=== PATIENT | female | born 1975 | race Two or more races ===

== ENCOUNTER 2017-10-15 15:53 | Emergency (ER) | payer BC ==
[2017-10-15 16:36] LABS: ADD MAN DIFF? NO
[2017-10-15 16:36] LABS: URINE HCG POC HCG NEGATIVE (Negative)
[2017-10-15 16:37] LABS: BASO # 0.1 x10^3/uL (0.0-0.2); BASO % 1 % (0-3); EOS # 0.3 x10^3/uL (0.0-0.7); EOS % 4 % (0-3); HEMATOCRIT 42.1 % (36.0-47.0); LYMPH % 24 % (24-48); MEAN CORPUSCULAR HEMOGLOBIN 29 pg (25-35); MEAN CORPUSCULAR HGB CONC 33 g/dL (31-37); MEAN CORPUSCULAR VOLUME 88 fL (79-100); MONO # 0.5 x10^3/uL (0.0-1.1); MONO % 6 % (0-9); NEUT # 5.4 x10^3uL (1.8-7.7); NEUT % 65 % (31-73); PLATELET COUNT 323 x10^3/uL (140-400); RED CELL DISTRIBUTION WIDTH 14.2 % (11.5-14.5); WHITE BLOOD COUNT 8.2 x10^3/uL (4.0-11.0)
[2017-10-15 16:41] LABS: BILIRUBIN,URINE NEGATIVE (NEG); CLARITY,URINE CLEAR; COLOR,URINE YELLOW; GLUCOSE,URINE NEGATIVE (NEG); NITRITE,URINE NEGATIVE (NEG); PH,URINE 6.5; PROTEIN,URINE NEGATIVE (NEG-TRACE)
[2017-10-15 16:52] LABS: D-DIMER < 0.27 ug/mlFEU (0.00-0.50)
[2017-10-15 16:53] LABS: ANION GAP 11 (6-14); BLOOD UREA NITROGEN 13 mg/dL (7-20); BUN/CREATININE RATIO 19 (6-20); CALCIUM 9.1 mg/dL (8.5-10.1); CARBON DIOXIDE 25 mmol/L (21-32); CHLORIDE 107 mmol/L (98-107); CREATININE 0.7 mg/dL (0.6-1.0); GFR 90.9; GLUCOSE 93 mg/dL (70-99); SODIUM 143 mmol/L (136-145)
[2017-10-15 16:54] LABS: BACTERIA,URINE MANY /HPF (0-FEW); RBC,URINE 0 /HPF (0-2); SQUAMOUS EPITHELIAL CELL,UR MANY /LPF
[2017-10-15 16:59] LABS: ALBUMIN 3.6 g/dL (3.4-5.0); ALBUMIN/GLOBULIN RATIO 0.9 (1.0-1.7); ALK PHOS 105 U/L (46-116); ALT (SGPT) 21 U/L (14-59); AST (SGOT) 20 U/L (15-37); TOTAL BILIRUBIN 0.5 mg/dL (0.2-1.0); TOTAL PROTEIN 7.5 g/dL (6.4-8.2)
[2017-10-15 17:02] LABS: TROPONINI < 0.017 ng/mL (0.000-0.055)
[2017-10-15 17:08] LABS: CREATINE KINASE 83 U/L (26-192)
[2017-10-15 17:09] LABS: CKMB MASS < 0.5 ng/mL (0.0-3.6)
[2017-10-15] MEDS ORDERED: KETOROLAC 30 MG/ML INJ. IV (17:30)
[2017-10-15] MEDS: HYDROcodone/APAP 5/325MG 1 TAB TABLET PO (17:45)
[2017-10-15] MEDS: IOHEXOL 300 MG/ML 100ML VIAL. IV (17:53)
[2017-10-15] MEDS ORDERED: CONTRAST GIVEN MC (18:00)
== END 2017-10-15 20:52 | disposition home or self-care (01) ==
LOC: ER 15:53
DX: R07.89 Other chest pain (principal); M54.9 Dorsalgia, unspecified; E03.9 Hypothyroidism, unspecified; Z90.49 Acquired absence of other specified parts of digestive tract
CPT/HCPCS: 36415; 71045; 71275; 80053; 81001; 81025; 82553; 84484; 85025; 85379; 93005; 99285-25; Q9967

== ENCOUNTER → 2018-02-23 | Outpatient (CLI) | payer BC | END | disposition home or self-care (01) | LOC: KCIC US 07:53 | DX: K76.0 Fatty (change of) liver, not elsewhere classified (principal); E55.9 Vitamin D deficiency, unspecified; E03.9 Hypothyroidism, unspecified; G43.909 Migraine, unspecified, not intractable, without status migrainosus; Z90.49 Acquired absence of other specified parts of digestive tract; Z68.43 Body mass index [BMI] 50.0-59.9, adult; Z82.49 Family history of ischemic heart disease and other diseases of the circulatory system; Z83.3 Family history of diabetes mellitus | CPT/HCPCS: 76700 ==

== ENCOUNTER → 2018-03-17 | Day surgery (SDC) | payer BC ==
[~2018-03-17] MED LIST: ATOR20TA58 PO; BUPR150T6 PO; HYDR-2678 PO; IV RINGERS,LACTATED 1000ML 1,000 ML IV SCH; LEVO25TA4 PO; LIDOCAINE 1% PF 2 ML VIAL. ID PRN; LIDOCAINE 2% PF Vial for OR 5 ML VIAL. ONE; MIDAZOLAM HCL/PF 2 MG/2 ML VIAL. IV PRN; NAPR500T8 PO; PROPOFOL 20 ML IV ONE; TOPI50TA8 PO; fentaNYL PF VIAL 100 MCG/2 ML VIAL IV PRN
[2018-03-17 09:46] VITALS: BP 155/68
--- NOTE | 2018-03-20 18:06 | PATHOLOGY ---
[facility] Accession Number: [id number] . 01 Material submitted: . GASTRIC POUCH BIOPSY . 01 Clinical history: . Epigastric pain . 02 Diagnosis: Segments of gastric and small intestinal mucosa, gastric pouch biopsies: - Focal erosion and mild to moderate acute and chronic inflammation of small intestinal mucosa. [facility]/03/20/2018 . 02 Comment: Sections of the gastric pouch biopsies reveal three segments of small intestinal mucosa and a single segment of gastric mucosa. Two of these segments of small intestinal mucosa show focal mucosal erosion with mild to moderate acute and chronic inflammation. The segment of gastric mucosa shows congestion and no significant inflammation. A properly controlled immunoperoxidase stain for Helicobacter is negative for Helicobacter organisms. There is no evidence of malignancy. (JPM:[facility] 03/20/2018) . . Special stain performed: Immunoperoxidase for Helicobacter . 02 Electronically signed: . Trey Delaney MD, Pathologist NPI- [id number] . 01 Gross description: . Received in formalin labeled "Green, Josee, gastric pouch BX," are 4 segments of son soft tissue measuring 1.4 x 0.7 x 0.2 cm in aggregate dimensions and ranging from 0.3 to 0.4 cm in maximum dimension. The specimen is submitted entirely in cassette A1. (TSD; 03/17/2018) TOB/TOB . 02 Pathologist provided ICD-10: K29.00, K29.50 . 02 CPT . 333991, [id number] Performed at: 01 [facility] [address], [place] [id number] MD Dontae Ellison MD Phone: [phone] Performed at: 02 [facility] [address] [place], [place] [id number] MD Trey Delaney MD Phone: [phone]
== END | disposition home or self-care (01) ==
LOC: SURG 07:49
PROVIDERS: ATTEND Internal Medicine Gastroenterology
DX: K25.4 Chronic or unspecified gastric ulcer with hemorrhage (principal); K29.50 Unspecified chronic gastritis without bleeding; Z98.84 Bariatric surgery status; E03.9 Hypothyroidism, unspecified; M19.90 Unspecified osteoarthritis, unspecified site; G47.30 Sleep apnea, unspecified; H40.9 Unspecified glaucoma; Z83.3 Family history of diabetes mellitus; Z82.49 Family history of ischemic heart disease and other diseases of the circulatory system; Z79.899 Other long term (current) drug therapy; Z90.49 Acquired absence of other specified parts of digestive tract; Z98.890 Other specified postprocedural states
CPT/HCPCS: 43239; 88305; 88342; J2001; J2704

== ENCOUNTER 2019-04-13 09:15 | Emergency (ER) | payer BC ==
[~2019-04-13] VITALS: Ht 157.5 cm; Wt 97.5 kg
[~2019-04-13 09:15] MED LIST changes: -IV RINGERS,LACTATED 1000ML 1,000 ML IV SCH; -LIDOCAINE 1% PF 2 ML VIAL. ID PRN; -LIDOCAINE 2% PF Vial for OR 5 ML VIAL. ONE; -MIDAZOLAM HCL/PF 2 MG/2 ML VIAL. IV PRN; -PROPOFOL 20 ML IV ONE; -fentaNYL PF VIAL 100 MCG/2 ML VIAL IV PRN
[2019-04-13 09:25] VITALS: BP 156/99
[2019-04-13] MEDS ORDERED: AMOX875T PO (09:39)
[2019-04-13] MEDS ORDERED: PRED50TA PO (09:39)
--- NOTE | 2019-04-13 09:39 | PHYS DOC ---
Past Medical History Past Medical History: Anxiety, Hypothyroid, Migraines (JOSH AMARO APRN) Past Surgical History: Appendectomy, Cholecystectomy, Gastric Bypass (JOSH AMARO APRN) Alcohol Use: None Drug Use: None (JOSH AMARO APRN) Adult General Chief Complaint Chief Complaint: SORE THROAT HPI HPI Patient is a 43 year old female with no significant medical history who presents to the ED today complaining of sore throat for 5 days. Patient states she has tried [id number] remedies to relieve her symptoms with no relief. Denies any fever. Denies any coughing or congestion. (JOSH AMARO APRN) Review of Systems Review of Systems Constitutional: Denies fever or chills [] Eyes: Denies change in visual acuity, redness, or eye pain [] HENT: Reports sore throat. Denies nasal congestion Respiratory: Denies cough or shortness of breath [] Cardiovascular: No additional information not addressed in HPI [] GI: Denies abdominal pain, nausea, vomiting, bloody stools or diarrhea [] : Denies dysuria or hematuria [] Musculoskeletal: Denies back pain or joint pain [] Integument: Denies rash or skin lesions [] Neurologic: Denies headache, focal weakness or sensory changes [] All other systems were reviewed and found to be within normal limits, except as documented in this note. (JOSH AMARO APRN) Allergies Allergies Allergies Coded Allergies Type Severity Reaction Last Updated Verified No Known Drug Allergies 03/17/18 No (ELISABETH ALAS MD) Physical Exam Physical Exam Constitutional: Well developed, well nourished, no acute distress, non-toxic appearance. [] HENT: Normocephalic, atraumatic, bilateral external ears normal, oropharynx moist, no oral exudates, nose normal. Posterior pharynx with moderate erythema, petechia noted and trace amount of exudate to the right +2 anterior cervical adenopathy. Eyes: PERRLA, EOMI, conjunctiva normal, no discharge. [] Neck: Normal range of motion, no tenderness, supple, no stridor. [] Cardiovascular:Heart rate regular rhythm, no murmur [] Lungs & Thorax: Bilateral breath sounds clear to auscultation [] Abdomen: Bowel sounds normal, soft, no tenderness, no masses, no pulsatile masses. [] Skin: Warm, dry, no erythema, no rash. [] Back: No tenderness, no CVA tenderness. [] Extremities: No tenderness, no cyanosis, no clubbing, ROM intact, no edema. [] Neurologic: Alert and oriented X 3, normal motor function, normal sensory function, no focal deficits noted. [] Psychologic: Affect normal, judgement normal, mood normal. [] (JOSH AMARO APRN) Current Patient Data Vital Signs Vital Signs Date Time Temp Pulse Resp B/P (MAP) Pulse Ox O2 Delivery O2 Flow Rate FiO2 04/13/19 09:25 97.8 79 16 156/99 (118) 97 Room Air 97.8 (ELISABETH ALAS MD) EKG EKG [] (JOSH AMARO APRN) Radiology/Procedures Radiology/Procedures [] (JOSH AMARO APRN) Course & Med Decision Making Course & Med Decision Making Pertinent Labs and Imaging studies reviewed. (See chart for details) This is a 43-year-old female patient with physical exam consistent tonsillitis patient was put on amoxicillin for 10 days. Also given prescription for prednisone. Tylenol/Motrin for pain. Saltwater gargles recommended. Provided ins tructions return to the ED at any point symptoms worsen especially if she is unable to tolerate her secretions. (JOSH AMARO APRN) Dragon Disclaimer Dragon Disclaimer This electronic medical record was generated, in whole or in part, using a voice recognition dictation system. (JOSH AMARO APRN) Departure Departure Impression: Primary Impression: Acute tonsillitis Disposition: 01 HOME, SELF-CARE Condition: STABLE Referrals: SUNSHINE STEPHEN MD (PCP) follow up in 1-2 weeks Patient Instructions: Tonsillitis, [id number] Additional Instructions: You were evaluated in the emergency department for throat infection. Complete your antibiotics and prednisone. Tylenol/Motrin for pain or fever. Use saltwater gargles. Follow-up with your doctor in 1-2 weeks, come back to the ED at any point symptoms worsen especially if unable to tolerate his secretions Scripts Prednisone (PREDNISONE) 50 Mg Tablet 1 TAB PO DAILY, #5 TAB Prov: JOSH AMARO APRN 04/13/19 Amoxicillin (AMOXICILLIN) 875 Mg Tablet 1 TAB PO BID, #20 TAB Prov: JOSH AMARO APRN 04/13/19 Attending Signature I have participated in the care of this patient and I have reviewed and agree with all pertinent clinical information above including history, exam, and recommendations. (ELISABETH ALAS MD) Problem Qualifiers Primary Impression: Acute tonsillitis Pharyngitis/tonsillitis etiology: unspecified etiology Qualified Codes: J03.90 - Acute tonsillitis, unspecified JOSH AMARO APRN Apr 13, 2019 09:39 ELISABETH ALAS MD Apr 13, 2019 10:03
== END 2019-04-13 09:48 | disposition home or self-care (01) ==
LOC: ER 09:15
DX: J03.90 Acute tonsillitis, unspecified (principal); E03.9 Hypothyroidism, unspecified; G43.909 Migraine, unspecified, not intractable, without status migrainosus
CPT/HCPCS: 99283

== ENCOUNTER 2019-04-22 06:27 | Emergency (ER) | payer BC ==
[~2019-04-22] VITALS: Ht 157.5 cm; Wt 97.5 kg
[~2019-04-22 06:27] MED LIST changes: +AMOX875T PO; +PRED50TA PO
[2019-04-22 06:31] VITALS: BP 167/84
[2019-04-22] MEDS ORDERED: IV NORMAL SALINE 1000ML BAG 1,000 ML IV SCH (07:00)
[2019-04-22] MEDS ORDERED: ASPIRIN CHEWABLE 81 MG TABLET. PO ONE (07:00)
[2019-04-22 07:14] LABS: BASO # 0.1 x10^3/uL (0.0-0.2); BASO % 1 % (0-3); EOS # 0.3 x10^3/uL (0.0-0.7); EOS % 3 % (0-3); HEMATOCRIT 40.3 % (36.0-47.0); HEMOGLOBIN 13.5 g/dL (12.0-15.5); LYMPH % 17 % (24-48); MEAN CORPUSCULAR HEMOGLOBIN 30 pg (25-35); MEAN CORPUSCULAR HGB CONC 34 g/dL (31-37); MEAN CORPUSCULAR VOLUME 89 fL (79-100); MONO # 0.7 x10^3/uL (0.0-1.1); MONO % 6 % (0-9); NEUT # 8.8 x10^3/uL (1.8-7.7); NEUT % 73 % (31-73); PLATELET COUNT 369 x10^3/uL (140-400); RED BLOOD COUNT 4.52 x10^6/uL (3.50-5.40); RED CELL DISTRIBUTION WIDTH 13.1 % (11.5-14.5)
[2019-04-22 07:34] LABS: CALCIUM 9.2 mg/dL (8.5-10.1); CREATININE 0.7 mg/dL (0.6-1.0); GFR 90.5; POTASSIUM 3.8 mmol/L (3.5-5.1)
[2019-04-22 07:36] LABS: ALBUMIN 3.6 g/dL (3.4-5.0); ALBUMIN/GLOBULIN RATIO 0.9 (1.0-1.7); MAGNESIUM 1.8 mg/dL (1.8-2.4); TOTAL BILIRUBIN 0.3 mg/dL (0.2-1.0); TOTAL PROTEIN 7.5 g/dL (6.4-8.2)
--- NOTE | 2019-04-22 07:43 | RAD ---
EXAM: Chest, single view. HISTORY: Chest wall pain. COMPARISON: 10/15/2017 FINDINGS: A frontal view of the chest obtained. There is no infiltrate, pleural effusion or pneumothorax. There are suspected bilateral lower lobe atelectasis. The heart is normal in size. IMPRESSION: No acute pulmonary finding. Electronically signed by: Gladis Quintana MD (04/22/2019 7:40 AM) [facility]
--- NOTE | 2019-04-22 08:06 | PHYS DOC ---
Past Medical History Past Medical History: Anxiety, Hypothyroid, Migraines Past Surgical History: Appendectomy, Cholecystectomy, Gastric Bypass Additional Past Surgical Histo: vein surgery left leg Alcohol Use: None Drug Use: None Adult General Chief Complaint Chief Complaint: Neck Pain HPI HPI Patient is a 43-year-old female who presents with complaint of left-sided back pain and substernal chest discomfort that started last night. She describes pain in her neck is a lot of tightness and states that it is worsened with movement of her neck. She states the pain in her chest is only present when she takes in a deep breath. She states that when she breathes deeply, pain is an 8 out of 10. She denies any nausea, vomiting or diaphoresis. Patient denies any cough. She denies any lower extremity swelling or pain.[] Review of Systems Review of Systems Constitutional: Denies fever or chills [] Respiratory: Denies cough or shortness of breath [] Cardiovascular: No additional information not addressed in HPI [] GI: Denies abdominal pain, nausea, vomiting or diarrhea [] Musculoskeletal: Positive neck pain [] Integument: Denies rash or skin lesions [] Neurologic: Denies headache, focal weakness or sensory changes [] All other systems were reviewed and found to be within normal limits, except as documented in this note. Current Medications Current Medications Current Medications Medications (Trade) Dose Ordered Sig/Basia Start Time Stop Time Status Last Admin Dose Admin Aspirin (Children'S Aspirin) 324 mg 1X ONCE 04/22/19 07:00 04/22/19 07:01 DC 04/22/19 06:57 324 MG Ketorolac Tromethamine (Toradol 30mg Vial) 30 mg 1X ONCE 04/22/19 08:15 04/22/19 08:16 DC 04/22/19 08:19 30 MG Sodium Chloride 1,000 ml @ 1,000 mls/hr Q1H 04/22/19 07:00 04/22/19 07:59 DC 04/22/19 06:57 1,000 MLS/HR Allergies Allergies Allergies Coded Allergies Type Severity Reaction Last Updated Verified No Known Drug Allergies 03/17/18 No Physical Exam Physical Exam Constitutional: Well developed, well nourished, no acute distress, non-toxic appearance. [] HENT: Normocephalic, atraumatic, bilateral external ears normal, oropharynx moist, no oral exudates, nose normal. [] Eyes: PERRLA, EOMI, conjunctiva normal, no discharge. [] Neck: Normal range of motion, supple, no stridor. [] Cardiovascular: Regular rate and rhythm[] Lungs & Thorax: Bilateral breath sounds clear to auscultation [] Abdomen: Bowel sounds normal, soft, no tenderness. [] Skin: Warm, dry, no erythema, no rash. [] Extremities: No tenderness, no cyanosis, no clubbing, ROM intact, no edema. [] Neurologic: Alert and oriented X 3, no focal deficits noted. [] Current Patient Data Vital Signs Vital Signs Date Time Temp Pulse Resp B/P (MAP) Pulse Ox O2 Delivery O2 Flow Rate FiO2 04/22/19 06:31 98.8 103 20 167/84 (111) 96 Room Air 98.8 Lab Values Laboratory Tests Test 04/22/19 07:00 White Blood Count 12.0 x10^3/uL (4.0-11.0) H Red Blood Count 4.52 x10^6/uL (3.50-5.40) Hemoglobin 13.5 g/dL (12.0-15.5) Hematocrit 40.3 % (36.0-47.0) Mean Corpuscular Volume 89 fL (79-100) Mean Corpuscular Hemoglobin 30 pg (25-35) Mean Corpuscular Hemoglobin Concent 34 g/dL (31-37) Red Cell Distribution Width 13.1 % (11.5-14.5) Platelet Count 369 x10^3/uL (140-400) Neutrophils (%) (Auto) 73 % (31-73) Lymphocytes (%) (Auto) 17 % (24-48) L Monocytes (%) (Auto) 6 % (0-9) Eosinophils (%) (Auto) 3 % (0-3) Basophils (%) (Auto) 1 % (0-3) Neutrophils # (Auto) 8.8 x10^3/uL (1.8-7.7) H Lymphocytes # (Auto) 2.0 x10^3/uL (1.0-4.8) Monocytes # (Auto) 0.7 x10^3/uL (0.0-1.1) Eosinophils # (Auto) 0.3 x10^3/uL (0.0-0.7) Basophils # (Auto) 0.1 x10^3/uL (0.0-0.2) D-Dimer (Chica) 0.32 ug/mlFEU (0.00-0.50) Sodium Level 141 mmol/L (136-145) Potassium Level 3.8 mmol/L (3.5-5.1) Chloride Level 106 mmol/L (98-107) Carbon Dioxide Level 27 mmol/L (21-32) Anion Gap 8 (6-14) Blood Urea Nitrogen 12 mg/dL (7-20) Creatinine 0.7 mg/dL (0.6-1.0) Estimated GFR (Cockcroft-Gault) 90.5 BUN/Creatinine Ratio 17 (6-20) Glucose Level 87 mg/dL (70-99) Calcium Level 9.2 mg/dL (8.5-10.1) Magnesium Level 1.8 mg/dL (1.8-2.4) Total Bilirubin 0.3 mg/dL (0.2-1.0) Aspartate Amino Transferase (AST) 15 U/L (15-37) Alanine Aminotransferase (ALT) 18 U/L (14-59) Alkaline Phosphatase 112 U/L (46-116) Troponin I Quantitative < 0.017 ng/mL (0.000-0.055) Total Protein 7.5 g/dL (6.4-8.2) Albumin 3.6 g/dL (3.4-5.0) Albumin/Globulin Ratio 0.9 (1.0-1.7) L Lipase 99 U/L (73-393) Laboratory Tests 04/22/19 07:00 Laboratory Tests 04/22/19 07:00 EKG EKG [] Interpretation Time: EKG demonstrates normal sinus rhythm with rate of 98. Radiology/Procedures Radiology/Procedures [] Impressions: PROCEDURE: PORTABLE CHEST 1V EXAM: Chest, single view. HISTORY: Chest wall pain. COMPARISON: 10/15/2017 FINDINGS: A frontal view of the chest obtained. There is no infiltrate, pleural effusion or pneumothorax. There are suspected bilateral lower lobe atelectasis. The heart is normal in size. IMPRESSION: No acute pulmonary finding. Electronically signed by: Gladis Quintana MD (04/22/2019 7:40 AM) [facility] DICTATED and SIGNED BY: GLADIS QUINTANA MD DATE: 04/22/19 0740 Course & Med Decision Making Course & Med Decision Making Pertinent Labs and Imaging studies reviewed. (See chart for details) [] Dragon Disclaimer Dragon Disclaimer This electronic medical record was generated, in whole or in part, using a voice recognition dictation system. Departure Departure Impression: Primary Impression: Chest wall pain Additional Impression: Neck pain Disposition: 01 HOME, SELF-CARE Condition: STABLE Referrals: SUNSHINE STEPHEN MD (PCP) Patient Instructions: Chest Wall Pain, Musculoskeletal Pain Scripts Diclofenac Sodium (DICLOFENAC SODIUM) 50 Mg Tablet.dr 1 TAB PO BID PRN for PAIN, #20 TAB Prov: ESTEE LEA Jr. DO 04/22/19 Orphenadrine Citrate (ORPHENADRINE CITRATE) 100 Mg Tablet.er 1 TAB PO BID PRN for MUSCLE SPASMS, #14 TAB Prov: ESTEE LEA Jr. DO 04/22/19 Tramadol Hcl (TRAMADOL HCL) 50 Mg Tablet 50 MG PO Q6HRS PRN for PAIN, #12 TAB Prov: ESTEE LEA Jr. DO 04/22/19 Problem Qualifiers ESTEE LEA Jr. DO Apr 22, 2019 08:06
[2019-04-22] MEDS ORDERED: KETOROLAC 30 MG/ML VIAL. IV ONE (08:15)
[2019-04-22 08:47] LABS: BILIRUBIN,URINE NEGATIVE (NEG); CLARITY,URINE CLEAR; COLOR,URINE YELLOW; NITRITE,URINE NEGATIVE (NEG); PH,URINE 6.5; PROTEIN,URINE NEGATIVE (NEG-TRACE); UROBILINOGEN,URINE 0.2 mg/dL (0.2 mg/dL)
[2019-04-22] MEDS ORDERED: ORPH100T PO (08:47)
[2019-04-22] MEDS ORDERED: TRAM50TA PO (08:47)
[2019-04-22] MEDS ORDERED: DICL50TA4 PO (08:47)
[2019-04-22 09:00] LABS: BACTERIA,URINE MODERATE /HPF (0-FEW)
[2019-04-22 09:01] LABS: SQUAMOUS EPITHELIAL CELL,UR MOD /LPF; YEAST,URINE PRESENT /HPF
--- NOTE | 2019-04-22 11:17 | EKG ---
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
== END 2019-04-22 08:58 | disposition home or self-care (01) ==
LOC: ER 06:27
DX: R07.89 Other chest pain (principal); M54.2 Cervicalgia; F41.9 Anxiety disorder, unspecified; E03.9 Hypothyroidism, unspecified; G43.909 Migraine, unspecified, not intractable, without status migrainosus; Z90.49 Acquired absence of other specified parts of digestive tract; Z90.89 Acquired absence of other organs; Z79.82 Long term (current) use of aspirin
CPT/HCPCS: 36415; 71045; 80053; 81001; 83690; 83735; 84484; 85025; 85379; 87086; 93005; 96374; 99285; J1885; J7030

== ENCOUNTER → 2021-12-07 | Emergency (ER) | payer BC ==
[~2021-12-07] VITALS: Ht 157.5 cm; Wt 105.0 kg
[~2021-12-07] MED LIST changes: +ASPIRIN 325 MG TABLET PO ONE; +BUPR150T21 PO; -BUPR150T6 PO; +DICL50TA4 PO; +FAMOTIDINE 20 MG/2 ML VIAL IVP ONE; +LIDO:MAALOX 1:1 20 ML SINGLE DOSE. SWSW ONE; +NITROGLYCERIN SUBLINGUAL 0.4 MG BOTTLE OF 25. SL PRN; +ORPH100T PO; +TRAM50TA PO; +fentaNYL PF VIAL 100 MCG/2 ML VIAL IV PRN
[2021-12-07 20:22] LABS: BASO # 0.1 x10^3/uL (0.0-0.2); BASO % 1 % (0-3); EOS # 0.3 x10^3/uL (0.0-0.7); EOS % 3 % (0-3); HEMATOCRIT 37.6 % (39.0-53.0); HEMOGLOBIN 12.6 g/dL (13.0-17.5); LYMPH # 2.3 x10^3/uL (1.0-4.8); LYMPH % 25 % (24-48); MEAN CORPUSCULAR HEMOGLOBIN 29 pg (25-35); MEAN CORPUSCULAR HGB CONC 34 g/dL (31-37); MEAN CORPUSCULAR VOLUME 88 fL (79-100); MONO # 0.7 x10^3/uL (0.0-1.1); MONO % 7 % (0-9); NEUT % 64 % (31-73); PLATELET COUNT 348 x10^3/uL (140-400); WHITE BLOOD COUNT 9.3 x10^3/uL (4.0-11.0)
--- NOTE | 2021-12-07 20:25 | PHYS DOC ---
Past Medical History Past Medical History: Anxiety, Hypertension, Hypothyroid, Migraines Past Surgical History: No Surgical History Additional Past Surgical Histo: vein surgery left leg Smoking Status: Never Smoker Alcohol Use: None Drug Use: None General Adult EDM: Chief Complaint: CHEST WALL PAIN HPI: HPI: Patient is a 46 year old female with history of anxiety, hypertension, hypothyroidism, presenting to the ED today complaining of 7 out of 10 substernal sharp chest pain worse on palpation, symptoms of been going on intermittently for 2 weeks. Patient also reports having similar symptoms a couple months ago. Patient denies any cough, congestion, shortness of breath. Review of Systems: Review of Systems: Constitutional: Denies fever or chills. [] Eyes: Denies change in visual acuity. [] HENT: Denies nasal congestion or sore throat. [] Respiratory: Denies cough or shortness of breath. [] Cardiovascular: Reports chest pain GI: Denies abdominal pain, nausea, vomiting, bloody stools or diarrhea. [] : Denies dysuria. [] Musculoskeletal: Denies back pain or joint pain. [] Integument: Denies rash. [] Neurologic: Denies headache, focal weakness or sensory changes. [] [] Psychiatric: Denies depression or anxiety. [] Heart Score: C/O Chest Pain: N/A Risk Factors: Risk Factors: DM, Current or recent (<one month) smoker, HTN, HLP, family hi story of CAD, obesity. Risk Scores: Score 0 - 3: 2.5% MACE over next 6 weeks - Discharge Home Score 4 - 6: 20.3% MACE over next 6 weeks - Admit for Clinical Observation Score 7 - 10: 72.7% MACE over next 6 weeks - Early Invasive Strategies Current Medications: Current Medications Medications (Trade) Dose Ordered Sig/Basia Start Time Stop Time Status Last Admin Dose Admin Aspirin (Shaan Aspirin) 325 mg 1X ONCE 12/07/21 20:15 12/07/21 20:21 DC Famotidine (Pepcid Vial) 20 mg 1X ONCE 12/07/21 20:15 12/07/21 20:21 DC Fentanyl Citrate (Fentanyl 2ml Vial) 50 mcg PRN Q15MIN PRN 12/07/21 20:15 12/08/21 20:14 Multi-Ingredient Mouthwash/Gargle (Gi Cocktail) 20 ml 1X ONCE 12/07/21 20:15 12/07/21 20:21 DC Nitroglycerin (Nitrostat) 0.4 mg PRN Q5MIN PRN 12/07/21 20:15 12/08/21 20:14 Allergies: Allergies: Allergies Coded Allergies Type Severity Reaction Last Updated Verified No Known Drug Allergies 03/17/18 No Physical Exam: PE: Constitutional: Well developed, well nourished, no acute distress, non-toxic appearance. [] HENT: Normocephalic, atraumatic, bilateral external ears normal, oropharynx moist, no oral exudates, nose normal. [] Eyes: PERRLA, EOMI, conjunctiva normal, no discharge. [] Neck: Normal range of motion, no tenderness, supple, no stridor. [] Cardiovascular:Heart rate regular rhythm, no murmur [] Lungs & Thorax: Bilateral breath sounds clear to auscultation [] Abdomen: Bowel sounds normal, soft, no tenderness, no masses, no pulsatile masses. [] Skin: Warm, dry, no erythema, no rash. [] Back: No tenderness, no CVA tenderness. [] Extremities: No tenderness, no cyanosis, no clubbing, ROM intact, no edema. [] Neurologic: Alert and oriented X 3, normal motor function, normal sensory function, no focal deficits noted. [] Psychologic: Affect normal, judgement normal, mood normal. [] Current Patient Data: Vital Signs: Vital Signs Date Time Temp Pulse Resp B/P (MAP) Pulse Ox O2 Delivery O2 Flow Rate FiO2 12/07/21 20:01 98.0 87 20 165/91 (115) 98 Room Air 98.0 EKG: EK interpreted by Dr. Childs sinus rhythm heart rate 83 no STEMI [] Radiology/Procedures: Radiology/Procedures: [] Course & Med Decision Making: Course & Med Decision Making Pertinent Labs and Imaging studies reviewed. (See chart for details) This a 46-year-old female patient presented to the ED today with chest pain that began 2 weeks ago but reports having similar pain before. Cardiac work-up is negative. Patient was discharged home with instructions to follow-up with a farm implement engine mechanic. Discharge paperwork was provided to patient during [facility] [place] Disclaimer: Dragon Disclaimer: This electronic medical record was generated, in whole or in part, using a voice recognition dictation system. Departure Departure Impression: Primary Impression: Chest pain Qualified Codes: R07.9 - Chest pain, unspecified Disposition: 01 HOME / SELF CARE / HOMELESS Condition: STABLE Referrals: SUNSHINE STEPHEN MD (PCP) JOSH AMARO VICE PRESIDENT OF SOFTWARE DEVELOPMENT December 07, 2021 20:25
[2021-12-07 20:40] LABS: CALCIUM 8.9 mg/dL (8.5-10.1); CREATININE 0.7 mg/dL (0.6-1.0); GFR 89.3; POTASSIUM 3.5 mmol/L (3.5-5.1)
[2021-12-07 20:46] LABS: ALBUMIN 3.5 g/dL (3.4-5.0); ALBUMIN/GLOBULIN RATIO 0.9 (1.0-1.7); TOTAL BILIRUBIN 0.2 mg/dL (0.2-1.0); TOTAL PROTEIN 7.5 g/dL (6.4-8.2)
[2021-12-08 00:36] LABS: BARBITURATES NEG (NEG); BENZODIAZEPINES NEG (NEG); CANNABINOIDS NEG (NEG); COCAINE NEG (NEG); METHADONE NEG (NEG); OPIATES NEG (NEG); PHENCYCLIDINE NEG (NEG)
[2021-12-08 00:37] LABS: AMPHETAMINE/METHAMPHETAMINE NEG (NEG)
[2021-12-08 00:41] LABS: WBC,URINE 20-40 /HPF (0-4)
[2021-12-08 00:42] LABS: BACTERIA,URINE MANY /HPF (0-FEW)
[2021-12-08 01:00] VITALS: BP 154/97
--- NOTE | 2021-12-08 07:48 | RAD ---
Exam: Chest one view INDICATION: Chest pain, pain TECHNIQUE: Frontal view of the chest Comparisons: 04/22/2019 FINDINGS: The cardiomediastinal silhouette and pulmonary vessels are within normal limits. The lung and pleural spaces are clear. IMPRESSION: No acute cardiopulmonary process. Electronically signed by: Sander Winkler MD (12/07/2021 8:36 PM) [facility]
--- NOTE | 2021-12-08 07:48 | RAD ---
Clinical History: Elevated liver enzymes. Technique: Sonographic examination of the right upper quadrant of the abdomen was performed and mult iple static images were obtained. Comparison: none Findings: Liver: The majority of the liver is visualized and the liver is heterogeneous with increased echogen icity and attenuation of sound further limiting ultrasound sensitivity for a possible solid liver les ion.. Common bile duct: Appears normal and measures 5 mm in diameter. Gallbladder: Removed. Pancreas: is not well visualized due to overlying bowel gas. Right kidney: appears normal and measures 11 cm in length. Main Portal Vein: Normal hepatopedal flow Aorta: normal IVC: normal Impression: Increased echogenicity of the liver and heterogeneity suggests fatty infiltration. Hepatocellular dis ease is possible. Recommend correlation with alpha-fetoprotein. Electronically signed by: Vinh Soler III, MD (12/07/2021 9:52 PM) [facility]
--- NOTE | 2021-12-08 07:54 | EKG ---
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
== END | disposition home or self-care (01) ==
LOC: EDSEX 19:45 → ER 19:45
DX: R07.2 Precordial pain (principal); E03.9 Hypothyroidism, unspecified; I10 Essential (primary) hypertension; G43.909 Migraine, unspecified, not intractable, without status migrainosus; F41.9 Anxiety disorder, unspecified
CPT/HCPCS: 36415; 71045; 76705; 80053; 80307; 81001; 83735; 83880; 84443; 84484; 85025; 87086; 93005; 96374; 99285; J3490